=== PATIENT | female | born 1995 | race African-American/Black ===

== ENCOUNTER 2022-09-13 09:55 | Inpatient (IN) | payer OTHER ==
[2022-09-13] MEDS: OXYTOCIN 20 UNITS in 0.9% NS 20 UNIT/1,000 ML INFUS.BAG IV SCH ×2 (10:35→13:58)
[2022-09-13] MEDS ORDERED: BENZOCAINE 28 GM HEMORRHOIDAL OINTMENT TP PRN (11:03)
[2022-09-13] MEDS ORDERED: METHYLERGONOVINE MALEATE 0.2 MG/1 ML AMP IM PRN (11:03)
[2022-09-13] MEDS ORDERED: WITCH HAZEL 50% (TUCKS) 40 PAD/JAR PAD TP PRN (11:03)
[2022-09-13] MEDS ORDERED: BENZOCAINE 20% 57 GM BOTTLE TP PRN (11:03)
[2022-09-13] MEDS ORDERED: ACETAMINOPHEN 325 MG TABLET (FP) PO PRN (11:03)
[2022-09-13] MEDS ORDERED: BISACODYL 10 MG SUPP.RECT RC PRN (11:03)
[2022-09-13 11:37] LABS: BASO % 0.1 % (0-2.0); EOS % 0.2 % (0-4.5); HEMATOCRIT 31.2 % (32.4-45.2); HEMOGLOBIN 10.5 GM/dL (10.7-15.3); LYMPH % 15.3 % (8-40); MCH 28.3 pg (25.7-33.7); MCHC 33.5 g/dl (32.0-36.0); MEAN CELL VOLUME 84.4 fl (80-96); MEAN PLT VOLUME 7.6 fl (7.5-11.1); MONO % 4.7 % (3.8-10.2); NEUT % 79.7 % (42.8-82.8); PLATELET COUNT 246 10^3/uL (134-434); RDW 14.6 % (11.6-15.6); WHITE BLOOD COUNT 8.2 K/mm3 (4.0-10.0)
[2022-09-13] MEDS ORDERED: MISOPROSTOL 200 MCG TABLET ONE (11:40)
[2022-09-13] MEDS ORDERED: MISOPROSTOL 200 MCG TABLET PR ONE (11:40)
[2022-09-13 11:45] LABS: INR 0.97 (0.83-1.09); PROTHROMBIN TIME (PATIENT) 11.3 SEC (9.7-13.0)
[2022-09-13 11:47] LABS: ACTIVATED PTT 25.6 SECONDS (25.2-36.5)
[2022-09-13 11:56] LABS: POTASSIUM 4.3 mmol/L (3.5-5.1)
[2022-09-13 11:57] VITALS: BMI 46.3
[2022-09-13 11:57] LABS: CALCIUM 9.1 mg/dL (8.5-10.1)
[2022-09-13 11:58] LABS: BLOOD UREA NITROGEN 6.9 mg/dL (7-18)
[2022-09-13 12:01] LABS: CREATININE 0.7 mg/dL (0.55-1.3)
[2022-09-13] MEDS ORDERED: oxyCODONE HCL 5 MG TABLET ONE (12:23)
[2022-09-13 12:24] LABS: SYPHILIS W/ RPR CONF NON-REACTIVE (NONREACTIVE)
[2022-09-13 12:53] LABS: HIV INTERPRETATION NEGATIVE (NEGATIVE)
[2022-09-13] MEDS ORDERED: oxyCODONE HCL 5 MG TABLET PO ONE (13:37)
[2022-09-13] MEDS ORDERED: OXYTOCIN 20 UNITS in 0.9% NS 20 UNIT/1,000 ML INFUS.BAG IV ONE (13:52)
[2022-09-13 15:39] LABS: COCAINE, UR NEGATIVE (NEGATIVE); METHADONE, UR NEGATIVE (NEGATIVE); OPIATES, URI NEGATIVE (NEGATIVE); PHENCYCLIDINE,URINE NEGATIVE (NEGATIVE); URINE AMPHETAMINES NEGATIVE (NEGATIVE); URINE BARBITURATES NEGATIVE (NEGATIVE); URINE BENZODIAZEPINES NEGATIVE (NEGATIVE)
[2022-09-13] MEDS: oxyCODONE HCL 5 MG TABLET PO PRN (17:45)
[2022-09-13] MEDS: FERROUS SO4 325 MG TABLET (FP) PO SCH (17:45)
[2022-09-13] MEDS: METHYLERGONOVINE MALEATE 0.2 MG TABLET (FP) PO SCH (21:24)
[2022-09-14] MEDS: oxyCODONE HCL 5 MG TABLET PO PRN ×3 (01:07→20:54)
[2022-09-14] MEDS: METHYLERGONOVINE MALEATE 0.2 MG TABLET (FP) PO SCH ×4 (03:06→20:53)
[2022-09-14 07:37] LABS: BASO % 0.2 % (0-2.0); EOS % 0.7 % (0-4.5); HEMOGLOBIN 9.9 GM/dL (10.7-15.3); LYMPH % 26.2 % (8-40); MCH 29.7 pg (25.7-33.7); MCHC 35.5 g/dl (32.0-36.0); MEAN CELL VOLUME 83.7 fl (80-96); MONO % 5.8 % (3.8-10.2); NEUT % 67.1 % (42.8-82.8); PLATELET COUNT 230 10^3/uL (134-434); RBC 3.35 M/mm3 (3.60-5.2); RDW 14.7 % (11.6-15.6); WHITE BLOOD COUNT 11.9 K/mm3 (4.0-10.0)
[2022-09-14] MEDS: PRENATAL VITAMINS W/ FOLIC ACID TABLET (FP) PO SCH (09:05)
[2022-09-14] MEDS: FERROUS SO4 325 MG TABLET (FP) PO SCH ×3 (09:06→17:05)
[2022-09-14 20:44] VITALS: RESP 18
[2022-09-14] MEDS ORDERED: SENNOSIDES/DOCUSATE COMBO (SENNA PLUS) TABLET (UD) PO PRN (22:00)
[2022-09-15] MEDS: METHYLERGONOVINE MALEATE 0.2 MG TABLET (FP) PO SCH (02:56)
[2022-09-15] MEDS: FERROUS SO4 325 MG TABLET (FP) PO SCH ×2 (09:18→13:06)
[2022-09-15] MEDS: PRENATAL VITAMINS W/ FOLIC ACID TABLET (FP) PO SCH (09:20)
[2022-09-15 10:36] VITALS: BP 114/71; PULSE 71; TEMP 98.1
== END 2022-09-15 13:55 | disposition home or self-care (01) | DRG 560 ==
LOC: JLDR 09:55 → J3W 15:40
PROVIDERS: ADMIT Specialist; ATTEND Specialist
PROC: 10E0XZZ Delivery of Products of Conception, External Approach (ICD-10-PCS; principal; 2022-09-13)
PROC: 0KQM0ZZ Repair Perineum Muscle, Open Approach (ICD-10-PCS; 2022-09-13)
DX: O70.1 Second degree perineal laceration during delivery (principal); Z3A.39 39 weeks gestation of pregnancy; Z37.0 Single live birth
CPT/HCPCS: 36415; 80048; 80307; 85025; 85610; 85730; 86780; 86850; 86900; 86901; 87389; 87635